=== PATIENT | female | born 1955 | race Caucasian/White ===

== ENCOUNTER 2017-05-27 09:17 | Observation (INO) | payer OTHER ==
[~2017-05-27] VITALS: Ht 167.6 cm; Wt 90.3 kg
[~2017-05-27 09:17] MED LIST: NAPROSYN 500MG500 MG PO
[2017-05-27 09:21] VITALS: BP 142/80
[2017-05-27] MEDS ORDERED: NAPROXEN500 M1 PO (09:31)
[2017-05-27] MEDS ORDERED: GABAPENTIN100 MG PO (09:31)
--- NOTE | 2017-05-27 09:31 | Emergency Room Report ---
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 Clinical Suspician of Infection? Mental Status: Sepsis Risk: Have you (or family members/close friends) recently traveled outside the [place]? If Yes, where/when: Have you had exposure to infectious disease within the past month? TB? Other? Specify: 58 years old white female presented to the ED complaining of vomiting because of lower back pain. She has seen the primary care physician prescribed her Naprosyn and Neurontin on hydrocodon, when she started vomiting she was given Phenergan. The patient denies having abdominal pain, she had one episode of diarrhea. She denies having dysuria hematuria or frequency. She denies having hematemesis coffee-ground emesis or bleeding per rectum. She had black stool since saturday (2 days). She denies lower extremity pain numbness or tingling weakness and loss of urine or bowel control. Source patient, RN notes reviewed Exam Limitations no limitations ALLERGIES Coded Allergies: No Known Allergies (04/11/17) Home Medications Reported Medications Gabapentin (Gabapentin 100MG) 100 MG PO TID #90 Naproxen 500 MG PO BID #60 HYDROCODONE/ACETAMINOPHEN (Hydrocodon-Acetaminophen 5-325) 1 TAB PO BIDP PRN SCIATIC PAIN #90 PROMETHAZINE HCL (Phenergan 25MG Tab (Geq)) 25 MG PO Q6HP PRN N/V #30 History Medical History General CAD? No Angina: No [place]: No Hypertension? No Hyperlipidemia? No CHF? No DVT? No PE? No COPD? No Asthma? No Anemia? No GERD? No Gastric ulcers? No GI Bleed? No Hernia? No Thyroid Problems? No Hypothyroidism? No CVA? No Seizures? No Diabetes? No Renal Insuffiency? No End Stage Renal Disease? No UTI? No Stones? No BPH? No GB Disease: No Nephritic Syndrome? No Asplenia? No Hepatitis? No Sickle Cell Disease? No Arthritis? No Migraines? No Cataracts? No Glaucoma? No MRSA? No HIV? No TB? No Anxiety? No Depression? No Cancer? No More? No Immunization Hx DT/Tetanus Unknown Surgical Hx Previous Surgery?Y APPENDECTOMY TUBAL Social History Alcohol Alcohol: No Review of Systems All Other Systems Reviewed and Negative Constitutional no symptoms reported Eyes no symptoms reported ENT no symptoms reported. Respiratory no symptoms reported Cardiovascular no symptoms reported Gastrointestinal see HPI, diarrhea, vomiting Genitourinary no symptoms reported. Musculoskeletal back pain Skin no symptoms reported Psychiatric/Neurological no symptoms reported Physical Exam Vital Signs Vital Signs Date Time Temp Pulse Resp B/P Pulse O2 O2 Flow FiO2 Ox Delivery Rate 05/27 1011 107 20 142/80 98 05/27 0959 110 111/72 05/27 0959 100 109/55 05/27 0958 92 128/78 05/27 0942 20 05/27 0921 97.5 107 18 142/80 98 - WBC >12,000 or <4,000 or 10% bands? 2 or more SIRS Criteria Met? B/P: MAP: Creatinine >2.0? UA output<0.5ml/kg/hr for 2 hrs? Platelet count >100,000? Lactate >2.0mmol/1? INR >1.2 or PTT > than 60 sec? Evidence of Organ Dysfunction? Provider documented clinical suspician of infection? Sepsis Criteria Count: Sepsis Risk: General Appearance normal appearance, WD/WN Eye Exam - bilateral eye normal exam, bilateral eye PERRL, bilateral eye EOMI Ear, Nose, Throat hearing grossly normal, normal ENT inspection Neck normal inspection, non-tender, supple, full range of motion Respiratory Status Yes: trachea midline, chest symmetrical, non tender chest. No: respiratory distress. Lung Sounds bilateral: normal breath sounds, lungs clear. 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 No Results/Orders Laboratory Tests 05/27/17 0932: Stool Occult Blood POSITIVE 05/27/17 0931: Sodium 132 L, Potassium 4.7, Chloride 96 L, Carbon Dioxide 27, BUN 20 H, Creatinine 0.9, Estimated Creat Clear 95, Estimated GFR (MDRD) 63, Glucose 115 H, Calcium 9.4, Total Bilirubin 0.6, AST 19, ALT 28, Alkaline Phosphatase 73, Troponin I < 0.02, Total Protein 7.7, Albumin 3.5, Globulin 4.2 H, Albumin/ Globulin Ratio 0.8 L, Lipase 90, WBC 12.5 H, RBC 4.83, Hgb 13.1, Hct 40.6, MCV 84.0, RDW 13.8, Plt Count 385, MPV 7.3 L, Gran % 81.7 H, Gran # 10.2 H, Lymphocytes % 13.7, Monocytes % 3.0, Eosinophils % 1.4, Basophils % 0.2, Lymphocytes # 1.7, Monocytes # 0.4, Eosinophils # 0.2, Basophils # 0.0, PUBS MCHC 32.3, MCH 27.1 Current Medication Orders Sig/Mikal Start time Last Medication Dose Route Stop Time Status Admin Sodium Chloride 1,000 ML .Q1H1M 05/27 1030 AC 05/27 IV 05/27 1130 1028 Sodium Chloride 10 ML PRN PRN 05/27 1030 AC IV 05/28 1021 Sodium Chloride 1,000 ML .STK-MED ONE 05/27 1030 DC IV Famotidine 20 MG ONCE ONE 05/27 945 DC 05/27 IV 05/27 946 0942 Morphine Sulfate 2 MG [id number] PRN 05/27 945 CAN IV Morphine Sulfate 2 MG ONCE ONE 05/27 945 DC 05/27 IV 05/27 0946 0942 Ondansetron HCl 4 MG ONCE ONE 05/27 945 DC 05/27 IV 05/27 0946 0941 Pantoprazole Sodium 40 MG ONCE ONE 05/27 945 DC 05/27 IV 05/27 946 0942 Sodium Chloride 8 ML ONCE ONE 05/27 945 DC 05/27 IV 05/27 0946 0943 Sodium Chloride 10 ML PRN PRN 05/27 945 AC IV 05/28 0932 Sodium Chloride 10 ML ONCE ONE 05/27 945 DC 05/27 IV 05/27 946 0942 Famotidine 0 .STK-MED ONE 05/27 938 DC IV Morphine Sulfate 0 .STK-MED ONE 05/27 938 DC .ROUTE Ondansetron HCl 0 .STK-MED ONE 05/27 938 DC .ROUTE Pantoprazole Sodium 0 .STK-MED ONE 05/27 938 DC IV Orders Procedure Date/time Status Decision to admit 05/27 1035 Active ORTHOSTATIC B/P 05/27 942 Active IV SALINE LOCK 05/27 933 Active ELECTROCARDIOGRAM REQUEST 05/27 932 Active URINALYSIS/COMPLETE 05/27 932 Active TROPONIN I 05/27 932 Complete STOOL OCCULT BLOOD 05/27 932 Complete LIPASE 05/27 932 Complete CBC WITH AUTO DIFF 05/27 932 Complete CHEM 12 PROFILE 05/27 932 Complete 12 LEAD EKG-CANDELARIOSON (INITIAL) 05/27 Active CM/EKG CM/EKG EKG rate, NSR, rhythm, no ectopy, normal QRS, normal MO, normal sinus rhythm 87/m P waves QRS are within normal limits. Inversion of the t waves from V1 to 3. Departure Departure Time of Disposition 945 Disposition Still a Patient Clinical Impression Primary Impression: Vomiting Qualifiers: Vomiting type: unspecified Secondary Impressions: Acute gastric ulcer, Other spondylosis with radiculopathy , lumbar region, Sciatica, Sciatica associated with disorder of lumbar spine, UGI bleed Condition STABLE Referrals Janett Crockett (Family) Additional Instructions the patient felt better after medications, nausea subsided. her occult was positive and she admitted for coffee ground emesis x [address] Watson and admitted for IVF, PPI therapy and EGD. Dr watson asked me to notigy Dr martínez and I did. The patien was admitted in a stable condition. Dr. Marin Discharge Counseling Counseled pt/family regarding diagnosis, test results, medications/RX, home care, follow up needs ED Critical Care Critical Care No If Critical Care minutes are documented, the time involved in the performance of seperately reportable procedures was not counted toward critical care time documented. I directly delivered medical care to this critically ill and/or injured patient. Timely evaluation and treatment was necessary to address the significant organ system(s) dysfunction present in this patient. at 1046
[2017-05-27] MEDS ORDERED: ACETAMINOPHEN-H1 TA2 PO (09:32)
[2017-05-27] MEDS ORDERED: PHENERGAN25 M3 PO (09:32)
[2017-05-27 09:41] LABS: STOOL OCCULT BLOOD POSITIVE (NEG)
[2017-05-27 09:43] LABS: HEMOGLOBIN 13.1 g/dL (12.2-16.2); LYMPH # 1.7 K/mm3 (0.7-4.5); LYMPH % 13.7 % (10-50.0)
[2017-05-27 09:56] LABS: BUN 20 mg/dL (7-18)
[2017-05-27 09:57] LABS: GFR (ESTIMATED) 63 ML/MIN (59-)
--- NOTE | 2017-05-27 10:37 | RADIOLOGY REPORT PS360 ---
ABD ACUTE(MUL VIEWS) HISTORY: vomiting, black stool on NSAIDs for LBP ORDERING PHYSICIAN: Tom Marin MD PATIENT AGE: 62 years COMPARISON: None FINDINGS: Frontal view of the chest shows no acute finding. There is evidence of old granulomatous disease. Upright and supine views of the abdomen displays nonspecific nonobstructive bowel gas pattern. No intestinal obstruction or free air. There is a question of some thumbprinting/bowel wall thickening in the ascending colon. Could however be related to nondistention as well. IMPRESSION: 1. Possible thumbprinting/bowel wall thickening of the ascending colon. CT may confirm if clinically warranted. 2. Otherwise negative acute abdomen
[2017-05-27 11:38] VITALS: BP 150/88
[2017-05-27 12:17] VITALS: BP 150/88
--- NOTE | 2017-05-27 12:18 | CONSULT NOTE ---
Standard Demographics Patient Demo Date of Consultation: 05/27/17 Referring Provider: Salas Ferrari MD Reason for Consultation: Upper Gastrointestinal Bleed PRIMARY DIAGNOSIS: UPPER GI BLEED Allergies: Coded Allergies: No Known Allergies (04/11/17) History of Present Illness Chief Complaint: Vomiting History of Present Illness: Patient is a 62-year-old white female whose primary care provider is Janett Crockett. She has apparent sciatica and spinal stenosis and has been given Naprosyn, hydrocodone, and gabapentin. She has developed what she describes as intractable vomiting. Initially this was rare. She states there may have been some blood. However now it has been every 1-2 hours of vomiting. She's had some occasional symptoms consistent with melena. She presented to the emergency department and was found have Hemoccult positive stool. She was admitted for inpatient management. Past Medical History Denies: CAD, GERD. Surgical History Previous Surgery?Y APPENDECTOMY TUBAL Allergies Coded Allergies: No Known Allergies (04/11/17) Medications: Reported Medications Gabapentin (Gabapentin 100MG) 100 MG PO TID #90 HYDROCODONE/ACETAMINOPHEN (Hydrocodon-Acetaminophen 5-325) 1 TAB PO BIDP PRN SCIATIC PAIN #90 PROMETHAZINE HCL (Phenergan 25MG Tab (Geq)) 25 MG PO Q6HP PRN N/V #30 Smoking Hx Tobacco: Yes Smoker: Current Every Day Smoker Type: Cigarettes Packs/day: 1 1/2 - 2 Packs Are you/the child exposed to second-hand smoke: Yes Alcohol Alcohol: No Hx of Drug Use Drug Use? No Review of Systems Constitutional No: recent weight loss. Skin No: bruising. Immune/allergy No: anaphalaxis. Eyes No: vision loss. ENT No: hearing loss. Respiratory No: shortness of air. Cardiovascular No: chest pain. GI Positive for: vomitting. (female) No: hematuria. Musculoskeletal Positive for: lumbar pain. Heme No: bruising. Endocrine No: cold intolerance. Neurological No: change in LOC, light headed. Physical Exam VS/I&O Vital Signs Date Time Temp Pulse Resp B/P Pulse O2 O2 Flow FiO2 Ox Delivery Rate 05/27 1148 18 05/27 1138 97.7 83 18 150/88 98 ROOM AIR 05/27 1114 97.6 82 18 147/85 97 05/27 1048 106 18 151/86 97 05/27 1011 107 20 142/80 98 05/27 0959 110 111/72 05/27 0959 100 109/55 05/27 0958 92 128/78 05/27 0942 20 05/27 0921 97.5 107 18 142/80 98 Exam General appearance no acute distress, alert, oriented Respiratory clear to auscultation Cardiovascular normal heart sounds Abdomen non-tender, soft Plan Plan: Plan for upper endoscopy tomorrow at 1417 at 1218
[2017-05-27 15:46] VITALS: BP 146/79
[2017-05-27 19:40] VITALS: BP 119/74
[2017-05-27 20:00] VITALS: BP 119/74
--- OUTSIDE RECORDS SUMMARY | 2017-05-27 21:14 | External Medical Summary Rpt ---
Author Author JOSEPH Oates, EDIEJESS [employer] Address Unknown Phone Unavailable Results Hemoglobin.gastrointestinal [Presence] in Stool Observa Value Referen Units Interpr Notes Date tion ce etation Range Hemoglo POSITIV NEG No No No May 27 bin.gas E informa informa informa 2017 trointe tion in tion in tion in 9:32 AM stinal source source source [Presen data data data ce] in Stool --1st specime n CBC W Auto Differential panel in Blood Observa Value Referen Units Interpr Notes Date tion ce etation Range Basophils 0 - 0.2 K/MM3 Normal No May 27 informati 2016 9:31 [#/volume on in AM ] in source Blood by data Automated count Basophils 0.1 - 2.0 % Normal No May 27 /100 informati 2017 9:31 leukocyte on in AM s in source Blood by data Automated count Eosinophi 0.0 - 0.4 K/mm3 Normal No May 27 ls informati 2016 9:31 [#/volume on in AM ] in source Blood by data Automated count Eosinophi 0.1 - % Normal No May 27 ls/100 12.0 informati 2017 9:31 leukocyte on in AM s in source Blood by data Automated count Granulocy 1.8 - 7.8 K/mm3 High No May 27 alverto informati 2017 9:31 [#/volume on in AM ] in source Blood by data Automated count Granulocy 37.0 - % High No May 27 alverto/100 80.0 informati 2017 9:31 leukocyte on in AM s in source Blood by data Automated count Hematocri 37.0 - % Normal No May 27 t [Volume 47.0 informati 2016 9:31 on in AM Fraction] source of Blood data Hemoglobi 12.2 - g/dL Normal No May 27 n 16.2 informati 2016 9:31 [Mass/vol on in AM ume] in source Blood data Lymphocyt 0.7 - 4.5 K/mm3 Normal No May 27 es informati 2017 9:31 [#/volume on in AM ] in source Unspecifi data ed specimen by Automated count Lymphocyt 10 - 50.0 % Normal No May 27 es informati 2017 9:31 [#/volume on in AM ] in source Unspecifi data ed specimen by Automated count Erythrocy 27 - 31.2 pg Normal No May 27 te mean informati 2017 9:31 corpuscul on in AM ar source hemoglobi data n [Entitic mass] Erythrocy 31.8 - g/dl Normal No May 27 te mean 35.4 informati 2017 9:31 corpuscul on in AM ar source hemoglobi data n concentra tion [Mass/vol ume] by Automated count Erythrocy 82.2 - fl Normal No May 27 te mean 97.8 informati 2017 9:31 corpuscul on in AM ar volume source [Entitic data volume] by Automated count Monocytes 0.1 - 1.0 K/mm3 Normal No May 27 informati 2017 9:31 [#/volume on in AM ] in source Blood by data Automated count Monocytes 1.7 - 9.3 % Normal No May 27 /100 informati 2017 9:31 leukocyte on in AM s in source Blood by data Automated count Platelet 7.4 - fl Low No May 27 mean 10.4 informati 2017 9:31 volume on in AM [Entitic source volume] data in Blood by Automated count Platelets 142 - 424 K/mm3 Normal No May 27 informati 2017 9:31 [#/volume on in AM ] in source Blood data Erythrocy 4.2 - 5.4 M/mm3 Normal No May 27 alverto informati 2017 9:31 [#/volume on in AM ] in source Amniotic data fluid Erythrocy 11.5 - % Normal No May 27 te 17.5 informati 2017 9:31 distribut on in AM ion width source [Entitic data volume] by Automated count Leukocyte 4.8 - K/MM3 High No May 27 s 10.8 informati 2017 9:31 [#/volume on in AM ] in source Blood data
--- OUTSIDE RECORDS SUMMARY | 2017-05-27 21:14 | External Medical Summary Rpt ---
Demographics Preferred Language Bulgarian Marital Status Unknown Episcopalian Affiliation Unknown Race Unknown Ethnic Group Unknown Author Author , JOSEPH RUIZ Address Unknown Phone [email or web address] Immunization Name Date Rout CVX Reac Dose Comm Prov Is Faci e tion ent ider Refu lity Give sed n Td 03-0 9 999 Hist H149 No H149 (gustavo 7-20 ori lt), 00 al Info adso rmat rbed ion - Sour ce Unsp ecif ied
--- OUTSIDE RECORDS SUMMARY | 2017-05-27 21:14 | External Medical Summary Rpt ---
Author Author , JOSEPH RUIZ Address Unknown Phone [email or web address] Purpose Continuity of Care Document - 05-27-2017 through 2016 Results Labs Lab Lab Date Result Refere Interp Status Commen Order Detail nces retati t Range on Hemoglobin.gastrointestinal [Presence] in Stool (05-27-2017 09:32) Hemoglo POSITIV NEG complet bin.gas 017 E ed trointe 09:32 stinal [Presen ce] in Stool --1st specime n
--- OUTSIDE RECORDS SUMMARY | 2017-05-27 21:14 | External Medical Summary Rpt ---
Author Author , JOSEPH RUIZ Address Unknown Phone [email or web address] Purpose Continuity of Care Document - 05-27-2017 through 2016 Results Labs Lab Lab Date Result Refere Interp Status Commen Order Detail nces retati t Range on Hemoglobin.gastrointestinal [Presence] in Stool (05-27-2017 09:32) Hemoglo POSITIV NEG complet bin.gas 017 E ed trointe 09:32 stinal [Presen ce] in Stool --1st specime n
--- OUTSIDE RECORDS SUMMARY | 2017-05-27 21:14 | External Medical Summary Rpt ---
[...] - 5.4 M/mm3 Normal No May 27 laverto informati 2017 9:31 [#/volume on in AM [...]
--- OUTSIDE RECORDS SUMMARY | 2017-05-27 21:14 | External Medical Summary Rpt ---
Demographics Preferred Language Cypriot Marital Status Unknown Amish Affiliation Unknown Race Unknown Ethnic Group Unknown Author Author , JOSEPH RUIZ Address Unknown Phone [email or web address] Immunization Name Date Rout CVX Reac Dose Comm Prov Is Faci e tion ent ider Refu lity Give sed n Td 03-0 9 999 Hist H149 No H149 (gustavo 7-20 ori lt), 00 al Info adso rmat rbed ion - Sour ce Unsp ecif ied
--- OUTSIDE RECORDS SUMMARY | 2017-05-27 21:16 | External Medical Summary Rpt ---
Author Author , JOSEPH RUIZ Address Unknown Phone [email or web address] Purpose Continuity of Care Document - 05-27-2017 through 2016 Results Labs Lab Lab Date Result Refere Interp Status Commen Order Detail nces retati t Range on Hemoglobin.gastrointestinal [Presence] in Stool (05-27-2017 09:32) Hemoglo POSITIV NEG complet bin.gas 017 E ed trointe 09:32 stinal [Presen ce] in Stool --1st specime n
--- OUTSIDE RECORDS SUMMARY | 2017-05-27 21:16 | External Medical Summary Rpt ---
Demographics Preferred Language Lebanese Marital Status Unknown Hoahaoism Affiliation Unknown Race Unknown Ethnic Group Unknown Author Author , JOSEPH RUIZ Address Unknown Phone [email or web address] Immunization Name Date Rout CVX Reac Dose Comm Prov Is Faci e tion ent ider Refu lity Give sed n Td 03-0 9 999 Hist H149 No H149 (gustavo 7-20 ori lt), 00 al Info adso rmat rbed ion - Sour ce Unsp ecif ied
--- OUTSIDE RECORDS SUMMARY | 2017-05-27 21:16 | External Medical Summary Rpt ---
Demographics Preferred Language Singaporean Marital Status Unknown Quaker Affiliation Unknown Race Unknown Ethnic Group Unknown Author Author , JOSEPH RUIZ Address Unknown Phone [email or web address] Immunization Name Date Rout CVX Reac Dose Comm Prov Is Faci e tion ent ider Refu lity Give sed n Td 03-0 9 999 Hist H149 No H149 (gustavo 7-20 ori lt), 00 al Info adso rmat rbed ion - Sour ce Unsp ecif ied
--- OUTSIDE RECORDS SUMMARY | 2017-05-27 21:16 | External Medical Summary Rpt ---
Author Author , JOSEPH RUIZ Address Unknown Phone [email or web address] Purpose Continuity of Care Document - 05-27-2017 through 2016 Results Labs Lab Lab Date Result Refere Interp Status Commen Order Detail nces retati t Range on Hemoglobin.gastrointestinal [Presence] in Stool (05-27-2017 09:32) Hemoglo POSITIV NEG complet bin.gas 017 E ed trointe 09:32 stinal [Presen ce] in Stool --1st specime n
[2017-05-28] VITALS (12 sets, daily range): BP systolic 103–144; BP diastolic 57–87
--- NOTE | 2017-05-28 07:44 | PHARMACY CLINIC NOTE ---
Patient Demographics Patient Demographics Admission date: 05/27/17 Date: 05/28/17 Time: 0743 Allergies Coded Allergies: No Known Allergies (04/11/17) HEIGHT- FT: 5 IN: 6.00 K.323 VTE General Information Labs: Laboratory Tests 05/27 09 Hematology Hgb (12.2 - 16.2 g/dL) 13.1 Hct (37.0 - 47.0 %) 40.6 Plt Count (142 - 424 K/mm3) 385 Disclaimer The following section includes nursing documentation that has been pulled in for pharmacy review. Patient's VTE score: 2 Patient's VTE Risk: VERY LOW RISK Clinical trial participant? No VTE prophylaxis [id number] VTE prophylaxis ordered? Yes Type of prophylaxis/treatment: BRYAN at 0743
--- NOTE | 2017-05-28 08:08 | Operative Note ---
Endoscopy Report Date: 05/28/17 Procedure Type of procedure: Esophagogastroduodenoscopy with biopsies Indications: Patient is a 62-year-old white female whose primary care provider is Janett Crockett. She has apparent sciatica and spinal stenosis and has been given Naprosyn, hydrocodone, and gabapentin. She has developed what she describes as intractable vomiting. Initially this was rare. She states there may have been some blood. However now it has been every 1-2 hours of vomiting. She's had some occasional symptoms consistent with melana. She presented to the emergency department and was found have Hemoccult positive stool. She was admitted for inpatient management. Plan was made for upper endoscopy. Procedure description: Consent was obtained and patient was taken to same-day surgery endoscopy procedure room. She was positioned in a semilateral position. Adequate intravenous sedation was achieved with titration of 7 mg Versed and 150 the oropharynx. Esophagus appeared normal. Stomach was cannulated and insufflated. Retroflexion revealed a very small hiatal hernia. There was mild diffuse patchy nonerosive gastritis. Pylorus was traversed and within the duodenal bulb there is a very large duodenal ulcer. No evidence of any bleeding. There was no evidence of any gastric outlet obstruction and the endoscope was able to be advanced into the distal duodenum which appeared unremarkable. Gastric antral mucosal biopsy was obtained for CLOtest for H. pylori. Very limited biopsies were obtained at the periphery of the ulcer. Endoscope was withdrawn. Findings 1. Duodenal Ulcer Follow-Up Follow-Up: Continue proton pump inhibitors. Treat H. pylori if positive. Limit nonsteroidal anti-inflammatory drugs. Ultimately if patient is able to tolerate a diet without vomiting and remained stable regarding any evidence of bleeding may continue outpatient treatment and repeat upper endoscopy in 8-12 weeks. at 0807
--- NOTE | 2017-05-28 09:09 | HISTORY AND PHYSICAL REPORT ---
Demographics: Admit date: 05/27/17 Chief complaint: gi bleed PRIMARY DIAGNOSIS: UPPER GI BLEED Allergies: Coded Allergies: No Known Allergies (04/11/17) History of present illness: History of present illness: 62-year-old female presented to the ER with vomiting up blood continuously. Patient has been recently treated for low back pain with sciatica and nerve compression is awaiting appointment with the neurosurgeon. Patient has been taking Naprosyn, gabapentin, and [place] to help with pain and has also been on a round of steroids. Patient states she just started with the vomiting and wants this started she could stop associated family bring her to the ER for evaluation. she admitted for gastrointestinal bleeding with surgery consult. Past medical history: Immunization HX DT/Tetanus Unknown Pneumonia Received In Past TB Test in last year No General CAD? No Angina: No NH: No Hypertension? No Hyperlipidemia? No CHF? No DVT? No PE? No COPD? No Asthma? No Anemia? No GERD? No Gastric ulcers? No GI Bleed? No Hernia? No Thyroid Problems? No Hypothyroidism? No CVA? No Seizures? No Diabetes? No Renal Insuffiency? No UTI? No Stones? No BPH? No GB Disease: No Nephritic Syndrome? No Asplenia? No Hepatitis? No Sickle Cell Disease? No Arthritis? No Migraines? No Cataracts? No Glaucoma? No MRSA? No HIV? No TB? No Anxiety? No Depression? No Cancer? No More? Yes Additional hx: SCIATIC NERVE PAIN Past Surgical HX Previous Surgery?Y APPENDECTOMY TUBAL Current home meds: Reported Medications Gabapentin (Gabapentin 100MG) 100 MG PO TID #90 Naproxen 500 MG PO BID #60 HYDROCODONE/ACETAMINOPHEN (Hydrocodon-Acetaminophen 5-325) 1 TAB PO BIDP PRN SCIATIC PAIN #90 PROMETHAZINE HCL (Phenergan 25MG Tab (Geq)) 25 MG PO Q6HP PRN N/V #30 Social Hx: Smoking HX Tobacco Yes Type Cigarettes Packs/day 1 1/2 - 2 PACKS Are you/the child exposed to second-hand smoke: Yes Alcohol Alcohol: No Hx of Drug Use Drug Use? No Review of systems: Constitutional No: no symptoms reported. Respiratory No: no symptoms reported. Cardiovascular No no symptoms reported Gastrointestinal/Abdominal see HPI, abdominal pain, nausea, poor appetite, vomiting Genitourinary No: no symptoms reported. Musculoskeletal see HPI, back pain, joint pain, muscle pain. Skin No: no symptoms reported. Neurological No: see HPI. Exam: Lab data for last 24 hours: Laboratory Tests 05/27/17931: Stool Occult Blood POSITIVE 05/27/17930: Sodium 132 L, Potassium 4.7, Chloride 96 L, Carbon Dioxide 27, BUN 20 H, Creatinine 0.9, Estimated Creat Clear 95, Estimated GFR (MDRD) 63, Glucose 115 H, Calcium 9.4, Total Bilirubin 0.6, AST 19, ALT 28, Alkaline Phosphatase 73, Troponin I < 0.02, Total Protein 7.7, Albumin 3.5, Globulin 4.2 H, Albumin/ Globulin Ratio 0.8 L, Lipase 90, WBC 12.5 H, RBC 4.83, Hgb 13.1, Hct 40.6, MCV 84.0, RDW 13.8, Plt Count 385, MPV 7.3 L, Gran % 81.7 H, Gran # 10.2 H, Lymphocytes % 13.7, Monocytes % 3.0, Eosinophils % 1.4, Basophils % 0.2, Lymphocytes # 1.7, Monocytes # 0.4, Eosinophils # 0.2, Basophils # 0.0, PUBS MCHC 32.3, MCH 27.1 Admission vital signs: 1ST Vital Signs Result Date Time Pulse Ox 98 05/27 921 B/P 142/80 05/27 921 Temp 97.5 05/27 921 Pulse 107 05/27 921 Resp 18 05/27 921 O2 Delivery ROOM AIR 05/27 1138 Exam General appearance: normal appearance, alert, active, no acute distress Eyes: normal exam ENT: normal exam Neck: normal inspection, full range of motion Cardiovascular: normal exam, regular rate & rhythm, normal peripheral pulses Respiratory: normal exam, chest non-tender, good air movement, no respiratory distress ABD: normal exam, normal bowel sounds, soft Genitourinary: normal voiding & quantity Extremities: normal exam, normal capillary refill, no peripheral edema Musculoskeletal: normal exam, back pain, joint pain, muscle pain Skin: normal exam, intact, warm Neuro: normal exam, alert, intact, oriented Plan: Problem List 1. Sciatica associated with disorder of lumbar spine 2. Sciatica 3. Acute gastric ulcer 4. UGI bleed 5. Vomiting Plan: rounded with abhinav, try advance diet, add karafate- if ok with allran at [id number]
[2017-05-29 00:30] VITALS: BP 114/65
[2017-05-29 03:55] VITALS: BP 136/75
[2017-05-29 08:00] VITALS: BP 117/63
--- NOTE | 2017-05-29 13:45 | ACUTE CARE PROGRESS NOTE (QUA) ---
Progress Notes Subjective Date 05/29/17 Time 1342 Note doing better Patient/family reports: feeling better Nursing reports: no complaints Objective Findings Last VS-Temp:97.1 B/P:117/63 Pulse:86 Resp:18 SaO2:96 OXYGEN Last weight lbs:199 oz:2 K.323 Method:Bed Scales Exam General appearance: alert Eyes: anicteric ENT: mucous membranes moist Neck: no JVD Cardiovascular: regular rate & rhythm Respiratory: no respiratory distress ABD: soft Genitourinary: no hematuria Extremities: moves all Musculoskeletal: equal muscle strength Skin: dry Neuro: alert, training coordinator II-XII nml as tested Reviewed: allergies, medications, vital signs, consult note Assessment/Plan Problem List 1. Sciatica associated with disorder of lumbar spine 2. Sciatica 3. Acute gastric ulcer 4. UGI bleed 5. Vomiting Patient condition Improving Plan: initiate discharge plan This inpt stay is expected to cross 2 MNs from start of care Yes Comments: will plan on d/c if mumtaz diet at 1344
--- NOTE | 2017-05-29 13:45 | ACUTE CARE PROGRESS NOTE (QUA) ---
Progress Notes Subjective Date 05/29/17 Time 1342 Note doing better Patient/family reports: feeling better Nursing reports: no complaints Objective Findings Last VS-Temp:97.1 B/P:117/63 Pulse:86 Resp:18 SaO2:96 OXYGEN Last weight lbs:199 oz:2 K.323 Method:Bed Scales Exam General appearance: alert Eyes: anicteric ENT: mucous membranes moist Neck: no JVD Cardiovascular: regular rate & rhythm Respiratory: no respiratory distress ABD: soft Genitourinary: no hematuria Extremities: moves all Musculoskeletal: equal muscle strength Skin: dry Neuro: alert, field mechanic/site lead II-XII nml as tested Reviewed: allergies, medications, vital signs, consult note Assessment/Plan Problem List 1. Sciatica associated with disorder of lumbar spine 2. Sciatica 3. Acute gastric ulcer 4. UGI bleed 5. Vomiting Patient condition Improving Plan: initiate discharge plan This inpt stay is expected to cross 2 MNs from start of care Yes Comments: will plan on d/c if mumtaz diet at 1343
--- NOTE | 2017-05-29 13:51 | DISCHARGE SUMMARY STANDARD ---
Demographics Admit date: 05/27/17 Discharge date: 05/29/17 History of present illness History of present illness 62-year-old female presented to the ER with vomiting up blood continuously. Patient has been recently treated for low back pain with sciatica and nerve compression is awaiting appointment with the neurosurgeon. Patient has been taking Naprosyn, gabapentin, and [place] to help with pain and has also been on a round of steroids. Patient states she just started with the vomiting and wants this started she could stop associated family bring her to the ER for evaluation. she admitted for gastrointestinal bleeding with surgery consult. Hospital Course Hospital Course: pt did well and stablized with iv meds and fluids and was seen by surg and had egd which showed acute ulcer- indings 1. Duodenal Ulcer Follow-Up Follow-Up: Continue proton pump inhibitors. Treat H. pylori if positive. Limit nonsteroidal anti-inflammatory drugs. Ultimately if patient is able to tolerate a diet without vomiting and remained stable regarding any evidence of bleeding may continue outpatient treatment and repeat upper endoscopy in 8-12 weeks. Discharge diagnoses Problem List 1. Sciatica associated with disorder of lumbar spine 2. Sciatica 3. Acute gastric ulcer 4. UGI bleed 5. Vomiting Medications Medications: Discharge meds are as noted. Comment: will see pcp and dr srivastava for follow up Follow up Follow up in office in: 2 WEEKS with: Mansoor Srivastava MD Comment: see dr srivastava for follow up at [id number]
[2017-05-29] MEDS ORDERED: PHENERGAN25 M3 PO (13:54)
[2017-05-29] MEDS ORDERED: CARAFATE1 GM/10 ML PO (13:54)
[2017-05-29] MEDS ORDERED: PROTONIX 40MG T40 MG PO (13:54)
[2017-05-29 14:20] VITALS: BP 117/63
== END 2017-05-29 14:20 | disposition home or self-care (01) ==
LOC: ER 09:17 → 2ND 10:38
PROVIDERS: Emergency Medicine; Surgery
PROC: 0DB98ZX Excision of Duodenum, Via Natural or Artificial Opening Endoscopic, Diagnostic (ICD-10-PCS; principal; 2017-05-28 08:30)
DX: K26.9 Duodenal ulcer, unspecified as acute or chronic, without hemorrhage or perforation (principal)
CPT/HCPCS: G0328; G0378; J2405